=== PATIENT | female | born 1995 | race Caucasian/White ===

== ENCOUNTER 2017-02-28 22:08 | Emergency (ER) | payer OTHER ==
[2017-02-28 22:15] VITALS: BP 139/77; PULSE 82; TEMP 98.1
--- NOTE | 2017-02-28 23:55 | PDOC ---
History of Present Illness - General History Source: Patient Exam Limitations: No Limitations - History of Present Illness Initial Comments: 03/01/17 00:16 The patient is a 21 year old female presenting with her mother, with no significant past medical history, who presents to the emergency department worried that she may have an ectopic . She states that she currently is a student at an ultrasound school and her professor performed a study on her abdomen. The professor noted to the patient that she may have ectopic as a yolk sac is visible on the ultrasound. She denies any kind of symptoms and notes that her last menstrual period was last week. The patient denies chest pain, shortness of breath, headache and dizziness. Denies fever, chills, nausea, vomit, diarrhea and constipation. Denies dysuria, frequency, urgency and hematuria. LMP: Last week Allergies: None Past surgical history: None reported Social history: No alcohol, tobacco or drug use reported <Gabriel Garcia - Last Filed: 03/01/17 00:16> <Tanya Hernandez - Last Filed: 03/01/17 02:04> - General Chief Complaint: Revisit,Radiology Variance Stated Complaint: ABDOMINAL PAIN Time Seen by Provider: 02/28/17 23:26 Past History <Gabriel Garcia - Last Filed: 03/01/17 00:16> - Suicide/Smoking/Psychosocial Hx Smoking History: Never smoked Have you smoked in the past 12 months: No Information on smoking cessation initiated: No Hx Alcohol Use: No Drug/Substance Use Hx: No Substance Use Type: None <Tanya Hernandez - Last Filed: 03/01/17 02:04> - Past Medical History Allergies/Adverse Reactions: Allergies Allergy/AdvReac Type Severity Reaction Status Date / Time No Known Allergies Allergy Verified 03/01/17 00:36 Home Medications: Ambulatory Orders NK [No Known Home Medication] 03/01/17 Review of Systems - Review of Systems Able to Perform ROS?: Yes Comments:: 03/01/17 00:17 GENERAL/CONSTITUTIONAL: No fever or chills. No weakness. GASTROINTESTINAL: No nausea, vomiting, diarrhea or constipation. GENITOURINARY: No dysuria, frequency, or change in urination MUSCULOSKELETAL: No joint or muscle swelling or pain. No neck or back pain. SKIN: No rash <Gabriel Garcia - Last Filed: 03/01/17 00:16> *Physical Exam - Vital Signs Last Vital Signs Temp Pulse Resp BP Pulse Ox 98.1 F 82 16 139/77 100 02/28/17 22:10 02/28/17 22:10 02/28/17 22:10 02/28/17 22:10 02/28/17 22:10 - Physical Exam Comments: 03/01/17 00:17 GENERAL: Awake, alert, and fully oriented, in no acute distress HEAD: No signs of trauma, normocephalic, atraumatic LUNGS: No distress, speaks full sentences, clear to auscultation bilaterally HEART: Regular rate and rhythm, normal S1 and S2, no murmurs, rubs or gallops, peripheral pulses normal and equal bilaterally. ABDOMEN: Soft, nontender, normoactive bowel sounds. No guarding, no rebound. No masses EXTREMITIES : Normal inspection, Normal range of motion, no edema. No clubbing or cyanosis. NEUROLOGICAL: Cranial nerves II through XII grossly intact. Normal speech, normal gait, no focal sensorimotor deficits SKIN: Warm, Dry, normal turgor, no rashes or lesions noted. <Gabriel Garcia - Last Filed: 03/01/17 00:16> - Vital Signs Last Vital Signs Temp Pulse Resp BP Pulse Ox 98.1 F 82 16 139/77 100 02/28/17 22:10 02/28/17 22:10 02/28/17 22:10 02/28/17 22:10 02/28/17 22:10 <Tanya Hernandez - Last Filed: 03/01/17 02:04> *DC/Admit/Observation/Transfer - Attestations Scribe Attestion: 03/01/17 00:17 Documentation prepared by Gabriel Garcia, acting as biomedical specialist for Tanya Hernandez MD <Gabriel Garcia - Last Filed: 03/01/17 00:16> <Tanya Hernandez - Last Filed: 03/01/17 02:04> Diagnosis at time of Disposition: Ovarian cyst Qualifiers: Laterality: left Qualified Code(s): N83.202 - Unspecified ovarian cyst, left side - Discharge Dispostion Disposition: HOME Condition at time of disposition: Stable - Patient Instructions Printed Discharge Instructions: DI for Ovarian Cyst Additional Instructions: please followup with your layout mechanic
== END 2017-03-01 02:08 | disposition home or self-care (01) ==
LOC: JER 22:08
DX: N83.02 Follicular cyst of left ovary (principal)
CPT/HCPCS: 76856-TC; 84703; 99281-25